=== PATIENT | female | born 1975 | race Caucasian/White ===

== ENCOUNTER → 2018-01-11 | Outpatient (CLI) | payer BC ==
[~2018-01-11] MED LIST: LEVOXYL0.05 MG PO; MOTRIN 800800 MG/TAB PO; PERCOCET 325 MG1 TA2 PO; PRENATAL1 TA7 PO; VALTREX 50500 MG/TAB PO; [UNRECOGNIZED DRUG - OTHER] IV
== END ==
LOC: MC.RAD 11:26
DX: Z12.31 Encounter for screening mammogram for malignant neoplasm of breast (principal)

== ENCOUNTER → 2019-01-24 | Outpatient (CLI) | payer BC | LOC: MC.RAD 01-17 14:00 | DX: Z12.31 Encounter for screening mammogram for malignant neoplasm of breast (principal) ==

== ENCOUNTER → 2019-07-03 | Outpatient (CLI) | payer BC | LOC: COL.VAS 14:44 | DX: M79.89 Other specified soft tissue disorders (principal) ==

== ENCOUNTER → 2020-01-30 | Outpatient (CLI) | payer BC | LOC: MC.RAD 13:52 | DX: Z12.31 Encounter for screening mammogram for malignant neoplasm of breast (principal) ==

== ENCOUNTER → 2021-03-01 | Outpatient (CLI) | payer OTHER | LOC: MC.RAD 15:30 | DX: Z12.31 Encounter for screening mammogram for malignant neoplasm of breast (principal) ==

== ENCOUNTER 2022-02-15 08:20 | Day surgery (SDC) | payer OTHER ==
[~2022-02-15] VITALS: Ht 180.3 cm; Wt 133.2 kg
[2022-02-15] MEDS ORDERED: ZESTRIL40 MG PO (08:33)
[2022-02-15] MEDS ORDERED: PRILOSEC 20MG20 MG PO (08:34)
[2022-02-15 08:41] VITALS: BP 137/97; PULSE 80; TEMP 97.9
[2022-02-15 09:40] VITALS: BP 131/84; PULSE 82; TEMP 98.2
--- NOTE | 2022-02-15 09:40 | NUR ---
PATIENT ARRIVES TO ROOM VIA CART. ASSIST TO CHAIR X 2. VITAL SIGNS ARE STABLE. SHE DENIES ANY NAUSEA OR PAIN. PATIENT REQUESTS ORANGE JUICE AND MUFFIN. WILL CONTINUE TO MONITOR.
[2022-02-15 09:55] VITALS: BP 127/96; PULSE 79
--- NOTE | 2022-02-15 09:55 | NUR ---
PATIENT IS DOING WELL, DENIES ANY PAIN OR NAUSEA. SHE TOLERATED THE MUFFIN AND JUICE WELL. VITAL SIGNS STABLE, WILL CONTINUE TO MONITOR.
[2022-02-15 10:10] VITALS: BP 142/98; PULSE 78
--- NOTE | 2022-02-15 10:10 | NUR ---
PATIENT ALERT AND ORIENTED, AWAITING DISCHARGE. IV REMOVED AT 1012. BROTHER IS HERE TO PICK HER UP. DISCHARGE INSTRUCTIONS REVIEWED. PATIENT DENIES HAVING ANY FURTHER QUESTIONS OR CONCERNS.
== END 2022-02-15 10:36 | disposition home or self-care (01) ==
LOC: SDCO 08:20
DX: Z12.11 Encounter for screening for malignant neoplasm of colon (principal); D12.2 Benign neoplasm of ascending colon; K63.5 Polyp of colon; Z87.891 Personal history of nicotine dependence
CPT/HCPCS: J2704; J7030

== ENCOUNTER → 2022-03-14 | Outpatient (CLI) | payer OTHER ==
[~2022-03-14] MED LIST changes: +PRILOSEC 20MG20 MG PO; +ZESTRIL40 MG PO
== END ==
LOC: MC.RAD 03-02 15:30
DX: Z12.31 Encounter for screening mammogram for malignant neoplasm of breast (principal)

== ENCOUNTER → 2024-04-24 | Outpatient (CLI) | payer BC | LOC: MC.RAD 08:59 | DX: Z12.31 Encounter for screening mammogram for malignant neoplasm of breast (principal); N64.89 Other specified disorders of breast ==